=== PATIENT | male | born 1995 | race American Indian/Alaskan Native ===

== ENCOUNTER 2021-06-03 04:44 | Emergency (ER) | payer MEDICAID, OTHER ==
[2021-06-03 05:17] VITALS: BP 134/66
--- NOTE | 2021-06-03 06:01 | XRay Report ---
XR chest routine 2V INDICATION / CLINICAL INFORMATION: facial weakness. COMPARISON: None available. FINDINGS: SUPPORT DEVICES: None. HEART /PULMONARY VASCULATURE: No significant abnormality. LUNGS / PLEURA: No significant pulmonary or pleural abnormality. No pneumothorax. ADDITIONAL FINDINGS: No significant additional findings. IMPRESSION: 1. No acute findings. Signer Name: Sancho Johns MD Signed: 06/03/2021 5:57 AM Workstation Name: [id number]
[2021-06-03 06:16] LABS: Alanine Aminotransferase 22 units/L (7-56); Albumin 3.8 g/dL (3.9-5); BUN/Creatinine Ratio 11; Blood Urea Nitrogen 10 mg/dL (9-20); Calcium 8.6 mg/dL (8.4-10.2); Hemolysis Index 2
--- NOTE | 2021-06-03 06:49 | Emergency Department Report ---
ED Neuro Deficit HPI - General Chief Complaint: Neuro Symptoms/Deficit Stated Complaint: FACIAL DROOP Time Seen by Provider: 06/03/21 05:23 Source: patient Mode of arrival: Ambulatory Limitations: No Limitations - History of Present Illness Initial Comments: 25-year-old morbidly obese -[place] male increasing stress presents emergency department complaining of a sudden onset of painless unilateral facial paralysis of unknown etiology reports no fever, chills, sweats, nausea, vomiting, shortness of breath, presyncope. -: Sudden Location: right face Place: home Severity: mild Quality: weak Improves With: none Worsens With: none On Anticoagulants: No Associated Symptoms: denies other symptoms. denies: cough, diaphoresis, malise, nausea/vomiting, syncope, weakness - Related Data Home Medications: Previous Rx's Medication Instructions Recorded Last Taken Type Penicillin Vk [Veetids TAB] 500 mg PO QID #40 tablet 12/08/14 Unknown Rx predniSONE [Deltasone] 20 mg PO QDAY #10 tab 12/08/14 Unknown Rx Valacyclovir HCl [Valacyclovir] 1,000 mg PO TID #21 tablet 06/03/21 Unknown Rx predniSONE [Deltasone] 20 mg PO QDAY #7 tab 06/03/21 Unknown Rx Allergies/Adverse Reactions: Allergies Allergy/AdvReac Type Severity Reaction Status Date / Time No Known Allergies Allergy Unverified 12/08/14 09:37 ED Review of Systems ROS: Stated complaint: FACIAL DROOP Other details as noted in HPI Comment: All other systems reviewed and negative ED Past Medical Hx - Past Medical History Previous Medical History?: Yes Hx Arthritis: Yes Additional medical history: Morbid Obesity - Surgical History Past Surgical History?: No - Social History Smoking Status: Never Smoker Substance Use Type: None - Medications Home Medications: Home Medications Medication Instructions Recorded Confirmed Last Taken Type Penicillin Vk [Veetids TAB] 500 mg PO QID #40 tablet 12/08/14 Unknown Rx predniSONE [Deltasone] 20 mg PO QDAY #10 tab 12/08/14 Unknown Rx Valacyclovir HCl [Valacyclovir] 1,000 mg PO TID #21 tablet 06/03/21 Unknown Rx predniSONE [Deltasone] 20 mg PO QDAY #7 tab 06/03/21 Unknown Rx ED Neuro Physical Exam - General Limitations: No Limitations General appearance: alert, in no apparent distress Suspected Stroke: No - Head Head exam: Present: other (Right facial paralysis flattening nasal fold and unresponsive forehead. Normal speech no tongue deviation) - Eye Eye exam: Present: normal appearance, PERRL, EOMI Pupils: Present: normal accommodation - ENT ENT exam: Present: mucous membranes moist - Neck Neck exam: Present: normal inspection, full ROM - Respiratory Respiratory exam: Present: normal lung sounds bilaterally. Absent: respiratory distress, wheezes, rales - Cardiovascular Cardiovascular Exam: Present: regular rate, normal rhythm. Absent: systolic murmur, diastolic murmur, rubs, gallop - GI/Abdominal GI/Abdominal exam: Present: soft, normal bowel sounds - Rectal Rectal exam: Present: deferred - Extremities Exam Extremities exam: Present: normal inspection - Back Exam Back exam: Present: normal inspection - Neurological Exam Neurological exam: Present: alert, oriented X3, CN II-XII intact, normal gait, reflexes normal. Absent: motor sensory deficit - NIHSS Assessment Interval: Baseline 1a. Level of Consciousness: alert/keenly responsive 1b. LOC Questions: answers both correctly 1c. LOC Commands: performs tasks correctly 2. Best Gaze: normal 3. Visual: no visual loss 4. Facial Palsy: normal symmetrical movement 5b. Motor Arm Right: no drift 5a. Motor Arm Left: no drift 6a. Motor Leg Left: no drift 6b. Motor Leg Right: no drift 7. Limb Ataxia: absent 8. Sensory: normal 9. Best Language: no aphasia 10. Dysarthria: normal - Psychiatric Psychiatric exam: Present: normal affect, normal mood - Skin Skin exam: Present: warm, dry, intact, normal color. Absent: rash ED Course Vital Signs 06/03/21 04:48 Temperature 97.5 F L Pulse Rate 91 H Respiratory 18 Rate Blood Pressure 134/66 O2 Sat by Pulse 97 Oximetry - Lab Data Result diagrams: 06/03/21 05:30 Lab Results 06/03/21 Range/Units 05:30 Sodium 137 (137-145) mmol/L Potassium 4.1 (3.6-5.0) mmol/L Chloride 103.1 (98-107) mmol/L Carbon Dioxide 29 (22-30) mmol/L Anion Gap 9 mmol/L BUN 10 (9-20) mg/dL Creatinine 0.9 (0.8-1.3) mg/dL Estimated GFR > 60 ml/min BUN/Creatinine Ratio 11 % Glucose 175 H (75-100) mg/dL Calcium 8.6 (8.4-10.2) mg/dL Total Bilirubin 0.30 (0.1-1.2) mg/dL AST 22 (5-40) units/L ALT 22 (7-56) units/L Alkaline Phosphatase 79 (35-129) units/L Total Protein 7.8 (6.3-8.2) g/dL Albumin 3.8 L (3.9-5) g/dL Albumin/Globulin Ratio 1.0 % - Radiology Data Chest x-ray clear. No acute findings - Medical Decision Making Asthma department complaining of acute painless unilateral facial paralysis with no forehead outm. 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 The differential diagnosis also includes CVA, traumatic trigeminal neuralgia, botulism, myasthenia gravis, and intracranial hemorrhage although these are unlikely. Plan is advised utilization of artificial tears steroids and valacyclovir follow-up in 3 to 5 days if k - Core Measures AMI Core Measures Followed: No Critical care attestation.: If time is entered above; I have spent that time in minutes in the direct care of this critically ill patient, excluding procedure time. ED Disposition Clinical Impression: David's palsy Disposition: 01 HOME / SELF CARE / HOMELESS Is pt being admited?: No Does the pt Need Aspirin: No Condition: Stable Instructions: David Palsy, Adult Prescriptions: predniSONE [Deltasone] 20 mg PO QDAY #7 tab Valacyclovir HCl [Valacyclovir] 1,000 mg PO TID #21 tablet Referrals: BERTIN LUX MD [Staff Physician] - 3-5 Days
[2021-06-03 08:12] LABS: Erythrocyte Sedimentation Rate 8 mm/Hr (0-20)
[2021-06-03 08:17] LABS: Basophils # (Auto) 0.1 K/mm3 (0.0-0.1); Basophils % (Auto) 1.1 % (0.0-1.8); Eosinophils # (Auto) 0.1 K/mm3 (0.0-0.4); Eosinophils % (Auto) 1.1 % (0.0-4.3); Hematocrit 36.8 % (35.5-45.6); Hemoglobin 12.3 gm/dl (11.8-15.2); Lymphocytes # (Auto) 2.6 K/mm3 (1.2-5.4); Lymphocytes % (Auto) 24.6 % (13.4-35.0); Mean Corpuscular HGB Conc 33 % (32-34); Mean Corpuscular Volume 86 fl (84-94); Monocytes # (Auto) 0.4 K/mm3 (0.0-0.8); Platelet Count 218 K/mm3 (140-440); Red Blood Count 4.29 M/mm3 (3.65-5.03); Red Cell Distribution Width 14.3 % (13.2-15.2)
== END 2021-06-03 11:36 | disposition home or self-care (01) ==
LOC: ED 04:44
DX: G51.0 Bell's palsy (principal); M19.90 Unspecified osteoarthritis, unspecified site; E66.01 Morbid (severe) obesity due to excess calories
CPT/HCPCS: 36415; 71046; 80053; 85025; 85652; 99283